=== PATIENT | female | born 1940 | race Caucasian/White ===

== ENCOUNTER 2019-07-30 11:04 | Emergency (ER) | payer MEDICARE, MEDICAID, SELFPAY ==
[2019-07-30 11:22] VITALS: BP 149/92; PULSE 92; RESP 18; TEMP 36; O2SAT 98; BMI 21.1
--- NOTE | 2019-07-30 11:30 | XRR_ITS ---
PROCEDURE INFORMATION: Exam: XR Left Hand Exam date and time: 07/30/2019 11:31 AM Age: 78 years old Clinical indication: Injury or trauma; Fall; Initial encounter; Blunt trauma (contusions or hematomas; Hand; Left; Additional info: Fall, deformity TECHNIQUE: Imaging protocol: XR Left hand. Views: 3 or more views. COMPARISON: No relevant prior studies available. FINDINGS: Bones/joints: There is a transverse fracture through the left 5th proximal phalanx with dorsal angulation of the distal fracture fragment. There is also a minimally displaced fracture through the proximal left 4th phalanx. No dislocation. There is osteopenia. Soft tissues: Normal. XR/XR hand LT 2V [id number] IMPRESSION: There are fractures through the left 4th and 5th proximal phalanges.
--- NOTE | 2019-07-30 11:32 | W.ED.FALL ---
HPI - Fall General: Chief Complaint: Fall Stated Complaint: FALL Time Seen by Provider: 07/30/19 11:31 Source: patient Mode of arrival: ambulatory Limitations: no limitations History of Present Illness: HPI Narrative: Patient comes in today for concerns of injury to the left hand from a fall last night. Patient and spouse report that last night they went back to bed and she was sitting on the side of the bed and she slipped falling over to the left hitting the left side of her head and catching her left hand against the floor or bed table. They are concerned due to deformity of the left fifth digit. Patient also has a contusion to the left periorbital area. Spouse states that she is done well since last night but they are concerned about her hand and are not concerned too much about any other problems. Spouse states that she has a pacemaker and has a history of pneumonia. Patient does not take any routine medications. Review of Systems General: Reports: 10 or more systems reviewed and unremarkable except in HPI and below Musc: Reports: other (Bruising and deformity to the left fifth digit.) Skin/Breast: Reports: other (Bruising left periorbital area.) PFSH ED PFSH: Social History Smoking and tobacco status: never smoked Physical Exam Const: COMMON NORMALS: no acute distress and patient oriented x3 GENERAL APPEARANCE: cooperative HENMT: COMMON NORMALS: normocephalic, TM's normal bilaterally and Normal external nose present HEAD & SCALP: normocephalic and other (Periorbital ecchymosis with swelling to the lateral brow of the left eye.) NOSE: Normal external nose present TYMPANIC MEMBRANE: TM's normal bilaterally MOUTH: Normal oral and palatal mucosa present Eye: GENERAL EYE: appearance normal, both eyes and all related structures Neck/C-Spine: COMMON NORMALS: full ROM Lymph: LYMPHATIC: no lymphadenopathy noted Chest: COMMONS NORMALS: normal inspection of the chest Resp: COMMON NORMALS: normal respiratory effort EFFORT & INSPECTION: Yes able to speak in complete sentences Cardio: COMMON NORMALS: regular rate and regular rhythm RATE: regular rate RHYTHM: regular rhythm GI: COMMON NORMALS: non-tender : COMMON NORMALS: Yes no CVA tenderness BLADDER/KIDNEY EXAM: Yes no CVA tenderness Back/Pelvis: COMMON NORMALS: no CVA tenderness and thoracic and lumbar spine normal to inspection Extremity: NARRATIVE EXTREMITY EXAM: Dorsal deformity to the left fifth digit with surrounding area of ecchymosis. Patient guarded with movement of the digit. Neuro: COMMON NORMALS: patient oriented x3 and moves all extremities Psych: COMMON NORMALS: mental status grossly normal and cooperative Skin: COMMON NORMALS: no rashes or lesions noted GENERAL SKIN EXAM: no rashes or lesions noted Procedures Nerve Block Nerve Block 1: Local Anesthetic: lidocaine 1% Amount of anesthesia used (mL): 5 Side: left Nerve Blocks: digital (5 th left hand) Procedure Successful: Yes Patient Tolerated Procedure: well Complications: pain with procedure Orthopedic Fracture Reduction Fracture #1: Side: left Fracture Reduction Location: finger (5th proximal phalanx) Analgesia: nerve block Technique: direct manipulation Post Reduction X-rays Demonstrate: acceptable reduction Post-reduction neuro exam: intact Post-reduction vascular exam: intact Splint Applied: Yes Patient Tolerated Procedure: well Orthopedic Splinting/Casting Injury #1: Side: left Upper Extremity Injury Location: finger Upper Extremity Immobilizer: aluminum form splint and finger (other) Course Vital Signs: Vital signs: Vital Signs Temperature 96.8 F L 07/30/19 11:22 Pulse Rate 92 07/30/19 11:22 Respiratory Rate 18 07/30/19 11:22 Blood Pressure 149/92 07/30/19 11:22 Pulse Oximetry 98 07/30/19 11:22 MDM - Fall MDM Narrative: Medical decision making narrative: Patient comes in from injuries sustained from a fall last evening. On exam patient has deformity to the left proximal fifth digit. Capillary refill is intact. Respirations are even lungs are clear to auscultation. Abdomen soft nontender. Extremities are nontender otherwise. Vital signs are normal. Differential diagnosis includes fracture, contusion, sprain. X-ray noted a proximal phalanx fracture with some displacement noted to the left fifth digit. CT scan was normal. Under digital block fracture was manipulated and straightened to acceptable position and splinted with support to the fourth digit. Aluminum form splint was also then applied volar and José Miguel wrap applied for extra support. Patient tolerated well. Postprocedure x-rays were done. Lab Data: Labs: Lab Results 07/30/19 07/30/19 07/30/19 Range/Units 11:55 11:55 11:56 WBC 6.4 (4.0-10.0) 10^3/ uL RBC 5.12 (4.1-5.3) 10^6/u L Hgb 17.2 H (11.5-15.3) g/dL Hct 50.0 H (37.0-47.0) % MCV 97.7 (81-99) fL MCH 33.6 (28.0-34.0) pg MCHC 34.4 (30.0-36.0) g/dL RDW 11.6 L (12.1-15.1) % Plt Count 162 (130-400) 10^3/c mm MPV 10.5 H (7.4-10.4) fL Neut % (Auto) 75.0 % Lymph % (Auto) 10.9 % [place] % (Auto) 10.3 % Eos % (Auto) 2.5 % Baso % (Auto) 1.1 % Neut # (Auto) 4.8 (1.8-7.7) 10^3/u L Lymph # (Auto) 0.7 L (0.8-4.8) 10^3/u L [place] # (Auto) 0.7 (0.2-0.9) 10^3/u L Eos # (Auto) 0.2 (0.0-0.8) 10^3/u L Baso # (Auto) 0.1 (0.0-0.1) 10^3/u L Nucleated RBC % (a uto) 0 % Nucleated RBCs # 0.0 /100WBC Sodium 131 L (136-145) mmol/L Potassium 4.0 (3.5-5.1) mmol/L Chloride 98 (98-107) mmol/L Carbon Dioxide 20 L (22-29) mmol/L Anion Gap 17.0 (5-19) BUN 4 L (8-23) mg/dL Creatinine 0.5 (0.5-0.9) mg/dL Glucose 88 (65-115) mg/dL Calculated Osmolal ity 267 L (285-295) mOsm/k g Calcium 8.6 (8.5-10.5) mg/dL Total Bilirubin 0.5 (0.15-1.2) mg/dL AST 35 H (0-32) U/L ALT 20 (0-33) U/L Alkaline Phosphata se 119 H (35-105) IU/L Total Protein 6.4 L (6.6-8.7) g/dL Albumin 3.5 (3.5-5.2) g/dL Globulin 2.9 (1.3-4.6) g/dL Urine Color Yellow (Yellow) Urine Appearance Cloudy (CLEAR) Urine pH 5 (5-7) Ur Specific Gravit y 1.010 (1.005-1.030) Urine Protein Neg (Negative) Urine Glucose (UA) Norm (Normal) Urine Ketones Negative (Negative) Urine Blood 2+ H (Negative) Urine Nitrate Positive H (Negative) Urine Bilirubin Neg (NEGATIVE) Urine Urobilinogen Norm (Negative) mg/dL Ur Leukocyte Nicole ase 2+ H (Negative) Urine RBC 25-40 H (0-2) /hpf Urine WBC >100 H (0-5) /hpf Ur Squamous Epith Cells 0-4 H (0-5) Urine Bacteria 4+ H (NONE) Discharge Plan Discharge Patient Disposition: Home, Self-Care Clinical Impression: Fracture of finger of left hand Qualifiers: Encounter type: initial encounter Finger: little finger Fracture type: closed Phalanx: proximal Fracture alignment: displaced Qualified Code(s): S62.617A - Displaced fracture of proximal phalanx of left little finger, initial encounter for closed fracture Contusion of face Qualifiers: Encounter type: initial encounter Qualified Code(s): S00.83XA - Contusion of other part of head, initial encounter UTI (urinary tract infection) Qualifiers: Urinary tract infection type: acute cystitis Hematuria presence: without hematuria Qualified Code(s): N30.00 - Acute cystitis without hematuria Condition: Stable Prescriptions: New Bactrim DS 800-160 mg tablet 1 tab PO DAILY 7 Days Qty: 14 RF: 0 ondansetron 4 mg tablet,disintegrating 4 mg PO TID PRN (Reason: nausea and vomiting) Qty: 10 RF: 0 Discharge Diet: Usual diet Discharge Activity: Increase activity as tolerated Patient Instructions: Splint Care (ED) Activity Restrictions/Additional Instructions: Keep splint in clean and dry. Avoid removal of splint. Use acetaminophen or ibuprofen as needed for pain. Monitor for increased swelling or fever. Return to the ER for uncontrolled pain or fever. Follow-up with primary care in 1 week. Case management will contact you regarding a orthopedic follow-up for monitoring of fracture healing. Take antibiotic as directed. Follow-up with primary care in 1 week for recheck of urine and clearance of infection. Coding Level of Care Code ED Manager [employer] for Chg Fwd Exam Comprehensive
--- NOTE | 2019-07-30 11:42 | CTR_ITS ---
PROCEDURE INFORMATION: Exam: CT Head Without Contrast Exam date and time: 07/30/2019 11:43 AM Age: 78 years old Clinical indication: Injury or trauma; Fall; Initial encounter; Blunt trauma (contusions or hematomas); Additional info: Head injury, loc? TECHNIQUE: Imaging protocol: Computed tomography of the head without contrast. Radiation optimization: All CT scans at this facility use at least one of these dose optimization techniques: automated exposure control; mA and/or kV adjustment per patient size (includes targeted exams where dose is matched to clinical indication); or iterative reconstruction. COMPARISON: CT head wo con* [id number] 06/30/2017 12:22 PM RADIATION DOSE METRICS: Total DLP: 824.85 mGy-cm FINDINGS: Brain: Moderate white matter disease and volume loss are identified. There is no acute infarct or edema. No hemorrhage. Ventricles: Normal. No ventriculomegaly. Bones/joints: Unremarkable. No acute fracture. Sinuses: Visualized sinuses are unremarkable. No fluid levels. Mastoid air cells: There is fluid in the right mastoid air cells. Soft tissues: Unremarkable. CT/CT head wo con* [id number] IMPRESSION: No acute fracture or intracranial hemorrhage. Radiation Dose CTDIVOL = (mGy): DLP = 824.85 (mGy-cm)
[2019-07-30 12:01] LABS: Basophils # 0.1 10^3/uL (0.0-0.1); Basophils % 1.1 %; Eosinophils # 0.2 10^3/uL (0.0-0.8); Eosinophils % 2.5 %; Hemoglobin 17.2 g/dL (11.5-15.3); Lymphocytes # 0.7 10^3/uL (0.8-4.8); Lymphocytes % 10.9 %; Mean Corpuscular HGB Conc 34.4 g/dL (30.0-36.0); Mean Corpuscular Hemoglobin 33.6 pg (28.0-34.0); Mean Corpuscular Volume 97.7 fL (81-99); Mean Platelet Volume 10.5 fL (7.4-10.4); Monocytes # 0.7 10^3/uL (0.2-0.9); Monocytes % 10.3 %; Neutrophils # 4.8 10^3/uL (1.8-7.7); Nucleated Red Blood Cells % 0 %; Platelet Count 162 10^3/cmm (130-400); Red Blood Count 5.12 10^6/uL (4.1-5.3); Red Cell Distribution Width 11.6 % (12.1-15.1); White Blood Count 6.4 10^3/uL (4.0-10.0)
[2019-07-30 12:05] LABS: Urine Color Yellow (Yellow)
[2019-07-30 12:06] LABS: Add Urine Microscopic? YES; Bilirubin Urine Neg (NEGATIVE); Blood Urine 2+ (Negative); Glucose Urine UA Norm (Normal); Ketones Urine Negative (Negative); Leukocyte Esterase Urine 2+ (Negative); Nitrate Urine Positive (Negative); Protein Urine Neg (Negative); Urine Appearance Cloudy (CLEAR); Urobilinogen Urine Norm (Negative); pH Urine 5 (5-7)
[2019-07-30 12:10] LABS: Add Urine Culture? Yes; Bacteria Urine 4+; RBC Urine 25-40 /hpf (0-2); Squamous Epithelial Cell Urine 0-4 (0-5); WBC Urine >100 /hpf (0-5)
[2019-07-30 12:15] LABS: Alanine Aminotransferase 20 U/L (0-33); Albumin Level 3.5 g/dL (3.5-5.2); Alkaline Phosphatase 119 IU/L (35-105); Aspartate Amino Transferase 35 U/L (0-32); Blood Urea Nitrogen 4 mg/dL (8-23); Calcium 8.6 mg/dL (8.5-10.5); Carbon Dioxide 20 mmol/L (22-29); Chloride 98 mmol/L (98-107); Globulin 2.9 g/dL (1.3-4.6); Glucose 88 mg/dL (65-115); Osmolality Calculated 267 mOsm/kg (285-295); Sodium 131 mmol/L (136-145); Total Bilirubin 0.5 mg/dL (0.15-1.2); Total Protein 6.4 g/dL (6.6-8.7)
--- NOTE | 2019-07-30 12:33 | XRR_ITS ---
PROCEDURE INFORMATION: Exam: XR Left Finger(s) Exam date and time: 07/30/2019 12:37 PM Age: 78 years old Clinical indication: Injury or trauma; Fall; Initial encounter; Dislocation; Left; Little finger; Additional info: Post reduction TECHNIQUE: Imaging protocol: XR Left fingers. Views: Minimum 2 views. COMPARISON: CR ( EX, ) 07/30/2019 12:04 PM FINDINGS: Bones/joints: There are fractures through the proximal left 4th and 5th phalanges. Alignment of the fracture of the left 5th phalanx has improved although there continues to be some dorsal angulation of the distal fracture fragment. There is osteopenia. Soft tissues: Normal. XR/XR finger LT min 2V [id number] IMPRESSION: Alignment of the fracture of the left 5th phalanx has improved although there continues to be some dorsal angulation of the distal fracture fragment.
[2019-07-30 13:36] VITALS: BP 129/85; PULSE 75; RESP 15; O2SAT 97
--- NOTE | 2019-08-01 10:46 | DCPLANNER ---
late entry - 07.31.19 manager target had message to schedule a follow up appointment for patient with ortho. manager target called the ortho clinic, spoke with Pat, gave clinic patients information. manager target was told that patients information would be printed and reviewed. Clinic will call binder caser and patient with appointment information. 08.01.19 - Pat from ortho called binder caser, stating that Dr. Tong reviewed patients information, and stated that patient would need to follow up with a hand specialist. manager target called patient, and spoke with patients healthcare science specialist Boogie. manager target informed him that patient needed to see a hand specialist, for her hand. Patients healthcare science specialist stated that patient declines any further treatment at this time. unemployment benefits claims taker stated that patient is not in any pain, and wants to let it heal on it own and does not want binder caser to pursue a follow up appointment at this time.
== END 2019-07-30 13:37 | disposition home or self-care (01) ==
PROVIDERS: Emergency Provider Nurse Practitioner Family
DX: S62.617A Displaced fracture of proximal phalanx of left little finger, initial encounter for closed fracture (principal); S00.83XA Contusion of other part of head, initial encounter; N30.00 Acute cystitis without hematuria; W06.XXXA Fall from bed, initial encounter; S62.645A Nondisplaced fracture of proximal phalanx of left ring finger, initial encounter for closed fracture
CPT/HCPCS: 12345; 26725; 36415; 70450; 73120; 73140; 80053; 81001; 85025; 87077; 87086; 87186; 99281; 99283; A6446

== ENCOUNTER 2020-07-23 13:20 | Outpatient (CLI) | payer MEDICARE, MEDICAID, SELFPAY ==
--- NOTE | 2020-07-23 13:30 | USCV_ITS ---
Shadi Looney Age: 79 Gender: F : 1940 Exam Date: 07/23/2020 13:41 Ordering Phys: Lucy Oconnor MD ([email or web address]) Technologist: MATTHEW Exam Location: [facility] – [place] Indication: PRESENCE OF CARDIAC PACEMAKER BP: 130 / 70 HR: 66 Rhythm: Other Technical Quality: Technically difficult study MEASUREMENTS (Male / Female) Normal Values 2D ECHO LV Diastolic Diameter PLAX 2.5 cm 4.2 - 5.9 / 3.9 - 5.3 cm LV Systolic Diameter PLAX 1.9 cm IVS Diastolic Thickness 2.0 cm 0.6 - 1.0 / 0.6 - 0.9 cm IVS Systolic Thickness 2.0 cm LVPW Diastolic Thickness 1.5 cm 0.6 - 1.0 / 0.6 - 0.9 cm LVPW Systolic Thickness 1.8 cm LVOT Diameter 2.0 cm LV Ejection Fraction 2D Teich 54.3 % LV Ejection Fraction MOD 2C 34.9 % LV Ejection Fraction 2C AL 37.4 % LA Diameter 3.5 cm LA Width 4.2 cm LA Height 5.0 cm RA Width 3.4 cm RA Height 4.1 cm Aorta at Sinotubular Diameter 2.4 cm M-MODE LV Diastolic Diameter MM 3.5 cm 4.2 - 5.9 / 3.9 - 5.3 cm LV Systolic Diameter MM 1.8 cm LV Ejection Fraction MM Teich 81.1 % IVS Diastolic Thickness MM 1.1 cm 0.6 - 1.0 / 0.6 - 0.9 cm IVS Systolic Thickness MM 1.2 cm LVPW Diastolic Thickness MM 1.3 cm 0.6 - 1.0 / 0.6 - 0.9 cm LVPW Systolic Thickness MM 1.4 cm Aortic Annulus Diameter 2.3 cm LA Ao Ratio MM 1.6 DOPPLER AV Peak Velocity 121.0 cm/s LVOT Peak Velocity 105.0 cm/s AV Area Cont Eq vti 3.5 cm squared AV Area Cont Eq pk 2.8 cm squared TR Peak Velocity 199.8 cm/s TR Peak Gradient 16.0 mmHg TV Peak E Velocity 56.0 cm/s Right Atrial Pressure 3.0 mmHg Pulmonary Artery Systolic Pressu 19.0 mmHg PV Peak Velocity 101.0 cm/s RV Acceleration Time 0.2 s RV Ejection Time 0.3 s RV AcT/ET 0.5 FINDINGS Left Ventricle Normal left ventricular cavity size. Increased left ventricular wall thickness. Normal left ventricular systolic function. Left ventricular ejection fraction is estimated at 60 %. Although no diagnostic regional wall motion abnormality could be identified, this possibility cannot be completely excluded based on the study. Grade I diastolic dysfunction (abnormal relaxation filling pattern), normal to mildly elevated filling pressures. Abnormal septal motion consistent with pacemaker. Right Ventricle Normal right ventricular size and systolic function. Right ventricular systolic pressure 31 mmHg. Right Atrium Normal right atrial pressure. Left Atrium Left atrium not well visualized. Mitral Valve Severe mitral annular calcification. Mild mitral valve regurgitation. Aortic Valve Aortic valve not well visualized. No aortic valve stenosis. Tricuspid Valve Tricuspid valve not well visualized. Thickened tricuspid valve. Trace tricuspid valve regurgitation. Pulmonic Valve Pulmonic valve not well visualized. Pericardium No pericardial effusion. Aorta Aorta not well visualized. Normal-sized aortic root. Normal- sized inferior vena cava with normal respiratory variation. CONCLUSIONS 1. This is a technically difficult study. 2. Normal left ventricular cavity size and systolic function. Increased left ventricular wall thickness. Left ventricular ejection fraction is estimated at 60 %. Although no diagnostic regional wall motion abnormality could be identified, this possibility cannot be completely excluded based on the study. Grade I diastolic dysfunction (abnormal relaxation filling pattern), normal to mildly elevated filling pressures. Abnormal septal motion consistent with pacemaker. 3. Mild pulmonary hypertension with pulmonary artery pressure estimated at 31 mmHg. 4. Mild mitral valve regurgitation. 5. When compared to previous echocardiogram dated 06/30/2017, there may not have been any significant change. Lucy Oconnor MD (Electronically Signed) Final Date: 29 July 2020 17:52 S
== END 2020-07-23 13:21 | disposition home or self-care (01) ==
LOC: RAD 13:29
PROVIDERS: PCP Family Medicine; Visit Provider Internal Medicine Cardiovascular Disease
DX: Z95.0 Presence of cardiac pacemaker (principal); I50.9 Heart failure, unspecified; I34.0 Nonrheumatic mitral (valve) insufficiency; I27.20 Pulmonary hypertension, unspecified
CPT/HCPCS: 93306

== ENCOUNTER 2020-09-08 09:49 | Emergency (ER) | payer MEDICARE, MEDICAID, SELFPAY ==
[2020-09-08 09:55] VITALS: BP 170/106; PULSE 81; RESP 18; O2SAT 96; BMI 21.1
--- NOTE | 2020-09-08 10:00 | CTR_ITS ---
PROCEDURE INFORMATION: Exam: CT Head Without Contrast Exam date and time: 09/08/2020 10:00 AM Age: 79 years old Clinical indication: Other: Turning head to the right; Additional info: Headache TECHNIQUE: Imaging protocol: Computed tomography of the head without contrast. Radiation optimization: All CT scans at this facility use at least one of these dose optimization techniques: automated exposure control; mA and/or kV adjustment per patient size (includes targeted exams where dose is matched to clinical indication); or iterative reconstruction. Other technique: STROKE PROTOCOL was implemented. COMPARISON: CT head wo con* [id number] 07/30/2019 12:09 PM RADIATION DOSE METRICS: Total DLP (mGy-cm): 1016.83 FINDINGS: Brain: No intracranial hemorrhage, edema or other acute abnormalities are seen in the brain. There is generalized chronic atrophy with prominence of the ventricles and sulci. There is decreased white matter density which indicates chronic small vessel white matter ischemia. 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 Cerebral ventricles: The ventricles are prominent due to chronic atrophy.. Paranasal sinuses: There is scattered mild the coastal thickening in the paranasal sinuses. Mastoid air cells: Visualized mastoid air cells are well aerated. Bones/joints: Unremarkable. No acute fracture. Soft tissues: Unremarkable. CT/CT head wo con* [id number] IMPRESSION: 1. No acute intracranial abnormality. 2. Chronic atrophy with chronic white matter ischemic changes. ASSESSMENT: ASPECTS ([place] Stroke Program Early CT Score) is 10. Radiation Dose CTDIVOL = (mGy): DLP = 1016.83 (mGy-cm)
--- NOTE | 2020-09-08 10:00 | XRR_ITS ---
PROCEDURE INFORMATION: Exam: XR Chest Exam date and time: 09/08/2020 10:00 AM Age: 79 years old Clinical indication: Cough; Prior surgery; Surgery type: Pacemaker TECHNIQUE: Imaging protocol: XR of the chest. Views: 1 view. COMPARISON: CR Chest 1 [place] [id number] 07/01/2017 6:04 PM FINDINGS: Tubes, catheters and devices: A permanent sequential pacemaker appears intact. Lungs: Unremarkable. No consolidation. Pleural spaces: Unremarkable. No pleural effusion. No pneumothorax. Heart/Mediastinum: The heart is not enlarged. There is calcification of the mitral annulus. The aortic arch is calcified. Bones/joints: Unremarkable. XR/XR chest 1V portable [id number] IMPRESSION: No acute cardiopulmonary abnormality.
[2020-09-08 10:01] VITALS: BP 170/106; PULSE 77; O2SAT 98
--- NOTE | 2020-09-08 10:01 | ED_ITS ---
HPI - Weakness General: Chief complaint: Weakness Stated complaint: slurred speech, lt side facial weakness, headache Time Seen by Provider: 09/08/20 09:56 History of Present Illness: HPI Narrative: This patient is a 79-year-old female who presents to the emergency department strokelike symptoms. Last well- known time was 11 PM last night. states that the patient appeared to be drooling and drooping on her left side. Complaining of weakness and not talking right. States he gave her 3 aspirin and put her in bed seem to be doing okay other than still having droopiness to the left side of her face. Patient does have a cardiac disease and a history of pacemaker. Congestive heart failure and mitral valve issues. Patient is not on any blood thinners. Patient's states that this morning she was seem to be more confused than normal. States that she does have dementia. We will do medical evaluation treat as needed MD Complaint: focal weakness Onset (ago): hour(s) Duration: constant Location: LUE and face Migration: none Severity: moderate Relieving factors: none Exacerbating factors: none Associated symptoms: Reports confusion; Denies chest pain, chills, dysuria, fever(s), headache(s), nausea or vomiting Review of Systems General: Reports: 10 or more systems reviewed and unremarkable except in HPI and below Const: Denies: fever(s), chills, body aches or fatigue Eyes: Denies: change in vision or blurry vision ENMT: Denies: throat pain, hoarseness or mouth pain Card: Denies: chest pain, palpitations, irregular heart rhythm, edema, swelling of feet/ankles or lightheadedness Resp: Denies: dyspnea, productive cough, non-productive cough, wheezing or pain on inspiration GI: Denies: abdominal pain, nausea or vomiting : Denies: flank pain, difficulty voiding, dysuria, urinary frequency, urinary urgency or urinary hesitancy Musc: Denies: neck pain, back pain, extremity pain, extremity swelling, joint pain, joint swelling, joint redness, joint warmth or limited range of motion Skin/Breast: Denies: rash, pruritus, erythema or skin tenderness Neuro: Reports: confusion; Denies: headache(s), numbness in extremities or weakness in extremities Psych: Denies: anxiety or depression PFSH ED PFSH: Medical History CHF (congestive heart failure) Hx of pleural effusion Mitral regurgitation Surgical History History of permanent cardiac pacemaker placement Family History Other Stroke Social History Smoking and tobacco status: never smoked Alcohol intake: current Alcohol intake frequency: other Physical Exam Const: COMMON NORMALS: no acute distress, average body habitus, no limitations, healthy appearing, alert and well nourished ORIENTATION/CONSCIOUSNESS: Yes oriented to person; not oriented to place and not oriented to time HENMT: COMMON NORMALS: normocephalic, atraumatic, hearing grossly normal bilaterally, external ears normal, EAC's normal, TM's normal bilaterally, Normal external nose present, Normal nasal mucous membranes and turbinates present, moist oral mucous membranes, oropharynx normal, dentition normal and gingiva normal HEAD & SCALP: normocephalic and atraumatic NOSE: Normal external nose present and Normal nasal mucous membranes and turbinates present EXTERNAL EAR: Yes external ears normal EXTERNAL AUDITORY CANAL: EAC's normal TYMPANIC MEMBRANE: TM's normal bilaterally Neck/C-Spine: COMMON NORMALS: full ROM, no lymphadenopathy, supple, no meni ngeal signs, no JVD, Thyroid normal and No carotid bruits THYROID: Thyroid normal Chest: COMMONS NORMALS: normal inspection of the chest, normal palpation of entire chest wall, normal inspection of the breasts and normal palpation of the breasts Breast/axilla inspection: Yes normal inspection of the breasts BREAST/AXILLA PALPATION: Yes normal palpation of the breasts Resp: COMMON NORMALS: normal respiratory effort, No retractions, No use of accessory muscles, clear to auscultation bilaterally and percussion normal AUSCULTATION: clear to auscultation bilaterally PERCUSSION: percussion normal Cardio: COMMON NORMALS: no JVD, regular rate, regular rhythm, S1 normal heart sound present, S2 normal heart sound present, No gallops present (Cardio), No clicks present (Cardio), No murmurs present (Cardio), No rub (Cardio) and Peripheral pulses 2+ throughout RATE: regular rate RHYTHM: regular rhythm HEART SOUNDS: S1 normal heart sound present and S2 normal heart sound present PERIPHERAL PULSES: Peripheral pulses 2+ throughout GI: COMMON NORMALS: Normal to inspection, nondistended, normoactive bowel sounds present, Soft to palpation, non-tender, No hepatosplenomegaly present, no masses and no bruits PALPATION: Yes Soft to palpation and Yes No hepatosplenomegaly present : COMMON NORMALS: Yes no CVA tenderness, Yes normal external appearance, Yes normal appearance of the vagina, Yes normal appearance of the cervix, Yes normal bimanual exam, Yes No adnexal tenderness and Yes no masses BLADDER/KIDNEY EXAM: Yes no CVA tenderness BIMANUAL EXAM - VAGINA & UTERUS: Yes normal bimanual exam Back/Pelvis: COMMON NORMALS: no CVA tenderness, thoracic and lumbar spine normal to inspection, no thoracic nor lumbar tenderness, thoraco-lumbar ROM normal and straight leg raise negative bilaterally Extremity: COMMON NORMALS: normal to inspection, full ROM, capillary refill normal, no joint enlargement, no clubbing, cyanosis or edema, no calf tenderness and no pedal edema Neuro: COMMON NORMALS: moves all extremities SENSORIUM/ORIENTATION: Yes alert, Yes oriented to person, No oriented to place, No oriented to time and Yes Orientation impaired MENINGEAL SIGNS: Yes no meningeal signs CRANIAL NERVES: Yes CN VII (facial) (Patient appears to have some facial asymmetry involving the cranial nerve V) Laterality: left Course Reevaluation(s): Reevaluation #1: Patient appears to have a significant urinary tract infection. Patient has a history of urinary tract infection infections with according to patient's . Recommend the patient get IV antibiotics admitted to the hospital. Family declines wishes to discharge patient home due to her dementia needs to be in familiar surroundings. Patient has no strokelike symptoms at this time. Concerning for slurred speech has resolved. Family member states that the patient is acting at her normal state. Chronic dementia. I did discuss at length with patient about and family about options. They request the patient be discharged home on antibiotics and will follow up with primary care physician. Patient be given a dose of Rocephin in the emergency department will discharge patient home with family per the request on [employer]. Time: 13:33 Vital Signs: Vital signs: Vital Signs Pulse Rate 81 09/08/20 09:55 Respiratory Rate 18 09/08/20 09:55 Blood Pressure 170/106 09/08/20 09:55 Pulse Oximetry 96 09/08/20 09:55 MDM - Weakness MDM Narrative: Medical decision making narrative: This patient is a 79-year-old female who presents to the emergency department strokelike symptoms. Last well-known time was 11 PM last night. states that the patient appeared to be drooling and drooping on her left side. Complaining of weakness and not talking right. States he gave her 3 aspirin and put her in bed seem to be doing okay other than still having droopiness to the left side of her face. Patient does have a cardiac disease and a history of pacemaker. Congestive heart failure and mitral valve issues. Patient is not on any blood thinners. Patient's states that this morning she was seem to be more confused than normal. States that she does have dementia. Patient appears to have a significant urinary tract infection. Patient has a history of urinary tract infection infections with according to patient's . Recommend the patient get IV antibiotics admitted to the hospital. Family declines wishes to discharge patient home due to her dementia needs to be in familiar surroundings. Patient has no strokelike symptoms at this time. Concerning for slurred speech has resolved. Family member states that the patient is acting at her normal state. Chronic dementia. I did discuss at length with patient about and family about options. They request the patient be discharged home on antibiotics and will follow up with primary care physician. Patient be given a dose of Rocephin in the emergency department will discharge patient home with family per the request on [employer]. Lab Data: Labs: Lab Results 09/08/20 09/08/20 09/08/20 Range/Units 10:15 10:15 10:15 WBC 7.2 (4.0-10.0) 10^3/ uL RBC 5.69 H (4.1-5.3) 10^6/u L Hgb 19.2 H (11.5-15.3) g/dL Hct 54.4 H (37.0-47.0) % MCV 95.6 (81-99) fL MCH 33.7 (28.0-34.0) pg MCHC 35.3 (30.0-36.0) g/dL RDW 12.1 (12.1-15.1) % Plt Count 185 (130-400) 10^3/c mm MPV 10.7 H (7.4-10.4) fL Neut % (Auto) 78.8 % Lymph % (Auto) 7.8 % [place] % (Auto) 8.1 % Eos % (Auto) 4.2 % Baso % (Auto) 0.7 % Neut # (Auto) 5.65 (1.8-7.7) 10^3/u L Lymph # (Auto) 0.6 L (0.8-4.8) 10^3/u L [place] # (Auto) 0.6 (0.2-0.9) 10^3/u L Eos # (Auto) 0.3 (0.0-0.8) 10^3/u L Baso # (Auto) 0.1 (0.0-0.1) 10^3/u L Nucleated RBC % (a uto) 0 % Nucleated RBCs # 0.0 /100WBC PT (12.1-14.9) SECO NDS INR (0.8-1.2) APTT (23.9-36.7) SECO NDS Sodium 128 L (136-145) mmol/L Potassium 4.1 (3.5-5.1) mmol/L Chloride 93 L (98-107) mmol/L Carbon Dioxide 25 (22-29) mmol/L Anion Gap 14.1 (5-19) BUN 4 L (8-23) mg/dL Creatinine 0.4 L (0.5-0.9) mg/dL GFR Calculation Not Reportable Glucose 91 (65-115) mg/dL Calculated Osmolal ity 262 L (285-295) mOsm/k g Calcium 8.0 L (8.5-10.5) mg/dL Total Bilirubin 0.7 (0.15-1.2) mg/dL AST 37 H (0-32) U/L ALT 21 (0-33) U/L Alkaline Phosphata se 136 H (35-105) IU/L Ammonia (11-51) umol/L Troponin T Baselin e 15 H (0-10) ng/L Troponin T 120 Min [place] (0-10) ng/L Delta Troponin T (0-10) ABS# NT-Pro-B Natriuret Pep 1164 H (0-450) pg/mL Total Protein 6.5 L (6.6-8.7) g/dL Albumin 3.7 (3.5-5.2) g/dL Globulin 2.8 (1.3-4.6) g/dL Urine Color (Yellow) Urine Appearance (CLEAR) Urine pH (5-7) Ur Specific Gravit y (1.005-1.030) Urine Protein (Negative) Urine Glucose (UA) (Normal) Urine Ketones (Negative) Urine Blood (Negative) Urine Nitrate (Negative) Urine Bilirubin (Negative) Urine Urobilinogen (Negative) mg/dL Ur Leukocyte Nicole ase (Negative) Urine RBC (0-2) /hpf Urine WBC (0-5) /hpf Ur Squamous Epith Cells (0-5) /hpf Amorphous Sediment Urine Bacteria (NONE) /hpf Salicylates 7.4 (3-10) mg/dL 09/08/20 09/08/20 09/08/20 Range/Units 11:19 11:19 11:55 WBC (4.0-10.0) 10^3/ uL RBC (4.1-5.3) 10^6/u L Hgb (11.5-15.3) g/dL Hct (37.0-47.0) % MCV (81-99) fL MCH (28.0-34.0) pg MCHC (30.0-36.0) g/dL RDW (12.1-15.1) % Plt Count (130-400) 10^3/c mm MPV (7.4-10.4) fL Neut % (Auto) % Lymph % (Auto) % [place] % (Auto) % Eos % (Auto) % Baso % (Auto) % Neut # (Auto) (1.8-7.7) 10^3/u L Lymph # (Auto) (0.8-4.8) 10^3/u L [place] # (Auto) (0.2-0.9) 10^3/u L Eos # (Auto) (0.0-0.8) 10^3/u L Baso # (Auto) (0.0-0.1) 10^3/u L Nucleated RBC % (a uto) % Nucleated RBCs # /100WBC PT 14.20 (12.1-14.9) SECO NDS INR 1.06 (0.8-1.2) APTT 27.0 (23.9-36.7) SECO NDS Sodium (136-145) mmol/L Potassium (3.5-5.1) mmol/L Chloride (98-107) mmol/L Carbon Dioxide (22-29) mmol/L Anion Gap (5-19) BUN (8-23) mg/dL Creatinine (0.5-0.9) mg/dL GFR Calculation Glucose (65-115) mg/dL Calculated Osmolal ity (285-295) mOsm/k g Calcium (8.5-10.5) mg/dL Total Bilirubin (0.15-1.2) mg/dL AST (0-32) U/L ALT (0-33) U/L Alkaline Phosphata se (35-105) IU/L Ammonia 20 (11-51) umol/L Troponin T Baselin e (0-10) ng/L Troponin T 120 Min [place] 10.44 H (0-10) ng/L Delta Troponin T -4.56 L (0-10) ABS# NT-Pro-B Natriuret Pep (0-450) pg/mL Total Protein (6.6-8.7) g/dL Albumin (3.5-5.2) g/dL Globulin (1.3-4.6) g/dL Urine Color (Yellow) Urine Appearance (CLEAR) Urine pH (5-7) Ur Specific Gravit y (1.005-1.030) Urine Protein (Negative) Urine Glucose (UA) (Normal) Urine Ketones (Negative) Urine Blood (Negative) Urine Nitrate (Negative) Urine Bilirubin (Negative) Urine Urobilinogen (Negative) mg/dL Ur Leukocyte Nicole ase (Negative) Urine RBC (0-2) /hpf Urine WBC (0-5) /hpf Ur Squamous Epith Cells (0-5) /hpf Amorphous Sediment Urine Bacteria (NONE) /hpf Salicylates (3-10) mg/dL // Range/Units 12:35 WBC (4.0-10.0) 10^3/ uL RBC (4.1-5.3) 10^6/u L Hgb (11.5-15.3) g/dL Hct (37.0-47.0) % MCV (81-99) fL MCH (28.0-34.0) pg MCHC (30.0-36.0) g/dL RDW (12.1-15.1) % Plt Count (130-400) 10^3/c mm MPV (7.4-10.4) fL Neut % (Auto) % Lymph % (Auto) % [place] % (Auto) % Eos % (Auto) % Baso % (Auto) % Neut # (Auto) (1.8-7.7) 10^3/u L Lymph # (Auto) (0.8-4.8) 10^3/u L [place] # (Auto) (0.2-0.9) 10^3/u L Eos # (Auto) (0.0-0.8) 10^3/u L Baso # (Auto) (0.0-0.1) 10^3/u L Nucleated RBC % (a uto) % Nucleated RBCs # /100WBC PT (12.1-14.9) SECO NDS INR (0.8-1.2) APTT (23.9-36.7) SECO NDS Sodium (136-145) mmol/L Potassium (3.5-5.1) mmol/L Chloride (98-107) mmol/L Carbon Dioxide (22-29) mmol/L Anion Gap (5-19) BUN (8-23) mg/dL Creatinine (0.5-0.9) mg/dL GFR Calculation Glucose (65-115) mg/dL Calculated Osmolal ity (285-295) mOsm/k g Calcium (8.5-10.5) mg/dL Total Bilirubin (0.15-1.2) mg/dL AST (0-32) U/L ALT (0-33) U/L Alkaline Phosphata se (35-105) IU/L Ammonia (11-51) umol/L Troponin T Baselin e (0-10) ng/L Troponin T 120 Min [place] (0-10) ng/L Delta Troponin T (0-10) ABS# NT-Pro-B Natriuret Pep (0-450) pg/mL Total Protein (6.6-8.7) g/dL Albumin (3.5-5.2) g/dL Globulin (1.3-4.6) g/dL Urine Color Straw (Yellow) Urine Appearance Hazy A (CLEAR) Urine pH 7 (5-7) Ur Specific Gravit y 1.005 (1.005-1.030) Urine Protein Neg (Negative) Urine Glucose (UA) Norm (Normal) Urine Ketones Negative (Negative) Urine Blood Neg (Negative) Urine Nitrate Negative (Negative) Urine Bilirubin Neg (Negative) Urine Urobilinogen Norm (Negative) mg/dL Ur Leukocyte Nicole ase 2+ H (Negative) Urine RBC None (0-2) /hpf Urine WBC 25-40 H (0-5) /hpf Ur Squamous Epith Cells 0-4 H (0-5) /hpf Amorphous Sediment Not Reportable Urine Bacteria 4+ H (NONE) /hpf Salicylates (3-10) mg/dL Imaging Data^: CT Head: Attestation: I personally reviewed and interpreted this imaging study as follows: Radiologist's impression: FINDINGS: Brain: No intracranial hemorrhage, edema or other acute abnormalities are seen in the brain. There is generalized chronic atrophy with prominence of the ventricles and sulci. There is decreased white matter density which indicates chronic small vessel white matter ischemia. 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 Cerebral ventricles: The ventricles are prominent due to chronic atrophy.. Paranasal sinuses: There is scattered mild the coastal thickening in the paranasal sinuses. Mastoid air cells: Visualized mastoid air cells are well aerated. Bones/joints: Unremarkable. No acute fracture. Soft tissues: Unremarkable. CT/CT head wo con* [id number] IMPRESSION: 1. No acute intracranial abnormality. 2. Chronic atrophy with chronic white matter ischemic changes. CXR: Attestation: I personally reviewed and interpreted this imaging study as follows: Radiologist's impression: No acute findings EKG Data^: EKG 1: Attestation: I personally reviewed and interpreted this EKG as follows: EKG interpretation date: 09/08/20 EKG interpretation time: 11:52 Prior EKG tracings: not available for review Interpretation: Electronically paced rhythm heart rate 74 nondiagnostic EKG Discharge Plan Discharge Patient Disposition: Home Clinical Impression: Urinary tract infection, Dementia, Hyponatremia Condition: Stable Prescriptions: New cephalexin 500 mg capsule 500 mg PO BID 7 Days Qty: 14 RF: 0 Discharge Orders: Discharge ED (Routine); Ordered 09/08/20 Ordered By: Tha Carlos Referrals: Boogie Chen, [Primary Care Provider] - Discharge Diet: Advance as tolerated Discharge Activity: Resume usual activity Patient Instructions: Opioid Safety Activity Restrictions/Additional Instructions: Patient is being discharged per family request. Encourage p.o. fluids take antibiotics as prescribed return to the emergency department if symptoms fail to improve or worsen. Coding Level of Care Code ED Pick Remover for Sue Fwd Exam Comprehensive
--- NOTE | 2020-09-08 10:01 | ECG_ITS ---
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 Measurements Intervals [place] Rate: 74 P: 39 MA: 187 QRS: -14 QRSD: 140 T: 74 QT: 454 QTc: 505 Interpretive Statements ELECTRONIC VENTRICULAR PACEMAKER AV paced rhythm ABNORMAL RHYTHM ECG Compared to ECG 07/01/2017 06:04:40 Sinus rhythm no longer present Incomplete right bundle-branch block no longer present Right-axis deviation no longer present T-wave abnormality no longer present Possible ischemia no longer present Electronically Signed On 09-08-2020 20:10:25 CDT by Tawanda Chavez M.D. [id number]
[2020-09-08 11:01] VITALS: BP 151/93; PULSE 75; O2SAT 98
[2020-09-08 11:01] LABS: Basophils # 0.1 10^3/uL (0.0-0.1); Basophils % 0.7 %; Eosinophils # 0.3 10^3/uL (0.0-0.8); Eosinophils % 4.2 %; Hematocrit 54.4 % (37.0-47.0); Hemoglobin 19.2 g/dL (11.5-15.3); Lymphocytes # 0.6 10^3/uL (0.8-4.8); Lymphocytes % 7.8 %; Mean Corpuscular HGB Conc 35.3 g/dL (30.0-36.0); Mean Corpuscular Hemoglobin 33.7 pg (28.0-34.0); Mean Corpuscular Volume 95.6 fL (81-99); Mean Platelet Volume 10.7 fL (7.4-10.4); Monocytes # 0.6 10^3/uL (0.2-0.9); Monocytes % 8.1 %; Neutrophils # 5.65 10^3/uL (1.8-7.7); Neutrophils % 78.8 %; Nucleated Red Blood Cells % 0 %; Platelet Count 185 10^3/cmm (130-400); Red Blood Count 5.69 10^6/uL (4.1-5.3); Red Cell Distribution Width 12.1 % (12.1-15.1); White Blood Count 7.2 10^3/uL (4.0-10.0)
[2020-09-08 11:27] LABS: Troponin(5th) Baseline 15 ng/L (0-10)
[2020-09-08 11:34] LABS: Alanine Aminotransferase 21 U/L (0-33); Albumin Level 3.7 g/dL (3.5-5.2); Alkaline Phosphatase 136 IU/L (35-105); Blood Urea Nitrogen 4 mg/dL (8-23); Carbon Dioxide 25 mmol/L (22-29); Chloride 93 mmol/L (98-107); Globulin 2.8 g/dL (1.3-4.6); Glucose 91 mg/dL (65-115); NT Pro B Type Natriuretic Pept 1164 pg/mL (0-450); Osmolality Calculated 262 mOsm/kg (285-295); Salicylate 7.4 mg/dL (3-10); Sodium 128 mmol/L (136-145); Total Bilirubin 0.7 mg/dL (0.15-1.2); Total Protein 6.5 g/dL (6.6-8.7)
[2020-09-08 11:43] LABS: INR 1.06 (0.8-1.2)
[2020-09-08 11:48] LABS: Ammonia 20 umol/L (11-51)
[2020-09-08 12:03] LABS: Anion Gap 14.1 (5-19); Aspartate Amino Transferase 37 U/L (0-32); Potassium 4.1 mmol/L (3.5-5.1)
[2020-09-08 12:19] LABS: Troponin 5 2HR 10.44 ng/L (0-10)
[2020-09-08 12:30] LABS: Troponin 5 2HR Delta -4.56 ABS# (0-10)
[2020-09-08 13:21] LABS: Add Urine Culture? Yes; Add Urine Microscopic? YES; Bacteria Urine 4+ /hpf; Bilirubin Urine Neg (Negative); Blood Urine Neg (Negative); Glucose Urine UA Norm (Normal); Ketones Urine Negative (Negative); Leukocyte Esterase Urine 2+ (Negative); Nitrate Urine Negative (Negative); Protein Urine Neg (Negative); Specific Gravity, Urine 1.005 (1.005-1.030); Squamous Epithelial Cell Urine 0-4 /hpf (0-5); Urine Appearance Hazy (CLEAR); Urine Color Straw (Yellow); Urobilinogen Urine Norm (Negative); WBC Urine 25-40 /hpf (0-5); pH Urine 7 (5-7)
[2020-09-08 14:01] VITALS: BP 144/94; PULSE 82; O2SAT 97
[2020-09-08 14:57] VITALS: BP 144/94; PULSE 79; O2SAT 95
== END 2020-09-08 14:45 | disposition home or self-care (01) ==
PROVIDERS: Emergency Provider Emergency Medicine; PCP Family Medicine
DX: N39.0 Urinary tract infection, site not specified (principal); F03.90 Unspecified dementia, unspecified severity, without behavioral disturbance, psychotic disturbance, mood disturbance, and anxiety; E87.1 Hypo-osmolality and hyponatremia; I50.9 Heart failure, unspecified; Z95.0 Presence of cardiac pacemaker
CPT/HCPCS: 36415; 70450; 71045; 80053; 80307; 81001; 82140; 83880; 84484; 85025; 85610; 85730; 87077; 87086; 87186; 93005; 99284

== ENCOUNTER → 2021-01-30 09:50 | Outpatient (BNVA) | payer MEDICARE, MEDICAID, SELFPAY | PROVIDERS: PCP Nurse Practitioner Family; Visit Provider Nurse Practitioner Family | DX: I50.9 Heart failure, unspecified (principal); Z95.0 Presence of cardiac pacemaker; R01.1 Cardiac murmur, unspecified | CPT/HCPCS: 80048; 83880 ==